=== PATIENT | female | born 1975 | race Two or more races ===

== ENCOUNTER 2025-07-22 13:54 | Emergency (ER) | payer MEDICAID ==
[~2025-07-22] VITALS: Ht 165.1 cm; Wt 61.9 kg
[~2025-07-22 13:54] MED LIST: ATOR20TA50 PO; HYDR-3682 PO; HYDR-4072 PO
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
[2025-07-22] MEDS: HYDROcodone-ACET 10/325MG TAB PO ONE (17:37)
[2025-07-22 17:57] VITALS: BP 124/73; PULSE 77; RESP 18; TEMP 98.4; O2SAT 99
== END 2025-07-22 17:59 | disposition home or self-care (01) ==
LOC: ER 13:54
DX: S13.4XXA Sprain of ligaments of cervical spine, initial encounter (principal); E11.9 Type 2 diabetes mellitus without complications; I11.0 Hypertensive heart disease with heart failure; I50.9 Heart failure, unspecified; Z88.5 Allergy status to narcotic agent; Z88.6 Allergy status to analgesic agent; V89.2XXA Person injured in unspecified motor-vehicle accident, traffic, initial encounter; Y93.89 Activity, other specified; Y99.8 Other external cause status; Y92.410 Unspecified street and highway as the place of occurrence of the external cause
CPT/HCPCS: 72040